=== PATIENT | male | born 1960 | race African-American/Black ===

== ENCOUNTER 2021-01-19 10:48 | Outpatient (CLI) | payer OTHER | END 2021-01-19 10:49 | disposition home or self-care (01) | LOC: CSHCT 10:48 | PROVIDERS: ATTEND Family Medicine | DX: Z12.2 Encounter for screening for malignant neoplasm of respiratory organs (principal); F17.210 Nicotine dependence, cigarettes, uncomplicated | CPT/HCPCS: 71271 ==

== ENCOUNTER 2022-04-12 07:37 | Outpatient (CLI) | payer OTHER | END 2022-04-12 07:38 | disposition home or self-care (01) | LOC: CSHCT 07:37 | PROVIDERS: ATTEND Family Medicine | DX: R10.9 Unspecified abdominal pain (principal); R16.0 Hepatomegaly, not elsewhere classified; E27.9 Disorder of adrenal gland, unspecified | CPT/HCPCS: 74177; 82565 ==